=== PATIENT | female | born 1950 | race Caucasian/White ===

== ENCOUNTER 2020-12-04 10:00 | Outpatient (RCR) | payer MEDICARE, SELFPAY ==
--- NOTE | 2020-11-13 18:26 | HMH.SLAPHASI ---
Speech & Language Evaluation Speech/Language Aphasia Evaluation Start: 11/13/20 14:45 Freq: once Status: Complete Protocol: Document 11/13/20 14:45 AMOS (Rec: 11/13/20 15:01 AMOS [id number]) Aphasia Assessment/Goals/Plan Assessment Date of Evaluation: 11/13/20 Evaluation Type Initial Certification Assessment/Problems Aphasia / Craniotomy Does Patient Qualify for Service Yes Qualify/Failure Comment Add additional goals: 1.) Patient will produce multisyllabic words in isolation with 90% accuracy with no prompts/cues in place. 2.) Patient will produce multisyllabic words at the sentence and reading level with 90% accuracy with minimal prompts/cues in place. Plan Pt will be seen # times/week 2 for # weeks 8 Anticipate reaching STG in # weeks 4 Anticipate reaching LTG in # weeks 8 Pt/Guardian verbally ack understanding Yes of dx/prognosis/goals G -code Required No STG-Reading Comprehension Reading Paragraphs & Ans Questions 90 STG-Attending/Orientation/Memory Delayed Recall 90 Attention/Concentration 90 Memory Recall 90 Information Technology Associate Goals Increase verbal expression skills to Yes communicate w/family & friends. Increase cognitive skills to communicate Yes w/family & friends Education Instructions provided Education provided to patient regarding goals and focus of therapy. She expressed understanding. Pt/Caregiver Able to Recall Information Able to recall/restate Reinforcement needed No Speech & Language HPI History Present Illness Description of Patient Problem Aphasia / Craniotomy Pt/Caregiver Concerns Pronouncing words Rehab Services Assessed Speech therapy Is this evaluation r/t stroke? No Vision Visual Difficulty Adequate Language Primary Language [place] Lang/Spoken in Home [place] Therapy History Seen by other SL therapists Yes Who/When/Recommendations [facility] following craniotomy in August Aphasia Evaluations Communication Speech Intelligibility WFL Auditory Comprehension Yes: Word Level Sentences Following Directions Paragraph Conversation
== END 2020-12-04 10:05 | disposition home or self-care (01) ==
LOC: ST 10:00
PROVIDERS: Visit Provider Internal Medicine
DX: Z87.820 Personal history of traumatic brain injury (principal); R47.01 Aphasia
CPT/HCPCS: 92523; 97129; 97130